=== PATIENT | female | born 2005 | race Caucasian/White ===

== ENCOUNTER 2025-04-07 17:00 | Inpatient (IN) | payer MEDICAID, SELFPAY ==
[2025-04-07] VITALS (14 sets, daily range): BP systolic 114–123; BP diastolic 71–75; PULSE 91–123; RESP 18; TEMP 36.6–37; O2SAT 92–100; BMI 33.0
--- NOTE | 2025-04-07 17:27 | XR_ITS ---
Examination: visualization of the TECHNIQUE: Limited transabdominal sonographic images pelvis Date and time: April 07, 2025 1613 hours INDICATIONS: Preop labor induction today, labor evaluation, unknown weight and presentation FINDINGS: Viable intrauterine gestation cephalic presentation spine anterior Cardiac motion 136 bpm Estimated age 37 weeks 2 days Estimated weight 3147 g IMPRESSION: Viable intrauterine gestation cephalic presentation
[2025-04-07 18:24] LABS: Basophils # (Auto) 0.0 Thou/mm3 (0.0-0.2); Basophils % (Auto) 0 % (0-2.5); Eosinophils # (Auto) 0.1 Thou/mm3 (0.0-0.5); Eosinophils % (Auto) 1 % (0-10); Hematocrit 36.5 % (36.0-46.0); Hemoglobin 13.1 g/dL (12.0-16.0); Immature Granulocytes Auto 0.03 Thou/mm3 (0.00-0.00); Lymphocytes # (Auto) 1.6 Thou/mm3 (1.0-5.0); Lymphocytes % (Auto) 18 % (10-50); Mean Corpuscular HGB Conc 35.9 g/dl (31.0-37.0); Mean Corpuscular Hemoglobin 31.3 pg (25.0-35.0); Mean Corpuscular Volume 87 fL (80-100); Monocytes # (Auto) 0.8 Thou/mm3 (0.0-0.8); Monocytes % (Auto) 9 % (0-12); Neutrophils # (Auto) 6.3 Thou/mm3 (1.8-7.7); Neutrophils % (Auto) 72 % (37-80); Nucleated Red Blood Cell # 0.00 Thou/mm3 (0.00-0.00); Nucleated Red Blood Cell % 0 /100 WBC (0); Platelet Count 176 Thou/mm3 (140-440); RDW Standard Deviation 42.8 fL (36.4-46.3); Red Blood Count 4.19 Miln/mm3 (4.00-5.20); White Blood Count 8.8 Thou/mm3 (4.5-11.0)
--- NOTE | 2025-04-07 19:48 | PD.LDHP ---
Documentation for date of: 04/07/25 OB Labor/Induct. HPI History of Present Illness Chief complaint: 19 y/o 39w 3d presents for IOL due to GDM : 1 Para: 0 Term pregnancies: 0 pregnancies: 0 Living children: 0 History of Abortions: Spontaneous and Elective: 0 History of Vaginal deliveries: 0 History of sections: No History of : No Date of last menstrual period: 07/05/24 GENIE: 04/11/25 Gestational Age (weeks): 39 Gestational Age (days): 3 Gestational age based on last menstrual period: 39 Indication for induction: medical complication (GDM- oral metformin) History of present illness: 19 y/o 39w 3d presents for IOL due to GDM on oral metformin 500mg BID. Pt was recently diagnosed at 36 weeks. Pt initially did her 1-hr GTT which was elevated and did not complete the 3-hr GTT until 36 weeks. BS was initially not well controlled so pt was placed on Metformin and after Metformin BS looked good. Pt was followed by [facility] and was placed on ASA early in the . Pt also tested positive for THC early on and reported she quit after finding out she was . [facility] sono were all normal. Cervix is closed, thick and high. Ultrasound confimred fetus is cephalic and EFW 3200g. GBS is neg. History of Present Dating criteria: LMP confirmed by 1st trimester US Adequate Care: Yes Ultrasounds: normal 1st trimester US and normal mid trimester US Obstetrical complications: gestational diabetes (Oral metformin) Labs Maternal Blood Type: O Pos Labs: Positive: Rubella Titre, Negative: RPR, Hepatitis B, HIV, Chlamydia, Gonorrhea and Group Beta Strep and Unknown: Herpes Type 1, Herpes Type 2 and Covid-19 Review of Systems Review of Systems Systems Reviewed: All systems reviewed, normal except as documented Past Medical History Surgical History SURGICAL: Negative Section Meds Home Medications and Allergies Home Medications ?Medication ?Instructions ?Recorded ?Confirmed ?Type aspirin 81 mg chewable tablet 81 mg PO QDAY 04/07/25 04/07/25 History vit no.95-ferrous 1 tab PO QDAY 04/07/25 04/07/25 History fumarate 28 mg-folic acid 800 mcg tablet () Allergies Allergy/AdvReac Type Severity Reaction Status Date / Time No Known Allergies Allergy Verified 04/07/25 17:08 OB Exam Physical Exam Vital signs: Temp Pulse Resp BP Pulse Ox O2 Del Method 98.5 F 102 H 18 114/71 100 Room Air 04/07/25 14:50 04/07/25 18:05 04/07/25 14:50 04/07/25 18:05 04/07/25 18:56 04/07/25 14:50 Constitutional Constitutional: no acute distress Routine HEENT Exam Head: Present normocephalic and atraumatic Eye: Present EOMI, PERRL and normal accommodation ENT: Present mucous membranes moist Routine Neck Exam Neck: Present full ROM Routine Respiratory Exam Respiratory: Absent respiratory distress Routine Cardiovascular Exam Cardiovascular: Present RRR Routine Abdominal Exam Abdominal: Present soft and normoactive bowel sounds Comments: Gravid Uterus EFW 3200g Routine Exam External: Present normal urethra appearance; Absent lesions Detailed Labor and Delivery Exam Dilation (cm): closed Effacement (%): 0 Cervix position: posterior station: -3 Presentation: Vertex (Per Sono) Membranes: intact Baseline heart rate: 130 monitor accelerations: 15x15 monitor decelerations: None watermelon inspector variability: Moderate (11-25) Contraction frequency (min): None Routine Extremities Exam Extremities: Present full ROM Routine Skin Exam Skin: Present intact, dry and warm Routine Neurological Exam Neurological: Present alert, oriented X3 and CN II-XII intact Routine Psychiatric Exam Psychiatric: Present normal affect and normal thought process OB Results Labs 04/07/25 17:34 Labs: Short CBC 04/07/25 Range/Units 17:34 WBC 8.8 (4.5-11.0) Thou/mm3 Hgb 13.1 (12.0-16.0) g/dL Hct 36.5 (36.0-46.0) % Plt Count 176 (140-440) Thou/mm3 OB Assessment & Plan Assessment and Plan (1) Encounter for induction of labor: Status: Acute (2) Gestational diabetes mellitus (GDM) in third trimester controlled on oral hypoglycemic drug: Status: Acute (3) with 39 completed weeks gestation: Status: Acute Additional Plan Induction method: other (Cervidil) Plan: induction, anticipate NVD and consult pralessio Additional Plan Comment: Routine Admit orders BS check Q4 hours Consult anesthesia for an epidural per pt request Ok to intermittent monitor per hospital protocol OK to have GDM-diet until more active in labor Updated Dr. Burks
[2025-04-07 19:52] LABS: Syphilis Nonreactive (Nonreactive)
[2025-04-08] VITALS (20 sets, daily range): BP systolic 105–128; BP diastolic 65–88; PULSE 72–98; RESP 16–18; TEMP 36.8–37.2; O2SAT 95–97
[2025-04-08 00:11] LABS: Amphetamine/Metham Scrn,Ur OB Negative (Negative); Benzoylecgonine Screen, Ur OB Negative (Negative); Opiate Screen,Urine OB Negative (Negative); THC Screen,Urine OB Negative (Negative)
--- NOTE | 2025-04-08 09:10 | PD.LDPN ---
Documentation for date of: 04/08/25 OB Labor Progress Note Pain Control Pain control: tolerating well Pelvic Exam Dilation (cm): 1 Effacement (%): 30 station: -3 Amniotic membrane status: Intact Contractions Monitor mode: External Contraction frequency: irreg Contraction intensity: Mild Status status: Category l Assessment and Plan Assessment: induction ongoing Plan OB labor note: other (Start cytotec) Comments: Removed the cervidil and pt is only 1 cm, still thick and high, vertex. Will start cytotec Anticipate
--- NOTE | 2025-04-08 17:37 | PC.NURSE ---
1700: Pt. educated on indication for metformin ordered my CNM Carmenza Orantes. Pt. 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 Medication administered.
--- NOTE | 2025-04-08 21:29 | PD.LDPN ---
Documentation for date of: 04/08/25 OB Labor Progress Note Pain Control Pain control: tolerating well Pelvic Exam Dilation (cm): 1 Effacement (%): Thick station: -3 Amniotic membrane status: Intact Contractions Monitor mode: External Contraction frequency: 2-6 Contraction intensity: Mild Status status: Category l Assessment and Plan Assessment: induction ongoing Plan OB labor note: continuous present management Comments: Pt has received 3 doses of cytotec with no cervical change. She will get the 4 th dose late this evening. Plant to place a cervidil after the the 4th dose. Reassuring fetus Anticipate
[2025-04-08] MEDS: fentaNYL CIT INJ 50 mCg/ML AMP 2ML 100 MCG IVP (23:45)
[2025-04-09] VITALS (126 sets, daily range): BP systolic 98–157; BP diastolic 41–89; PULSE 60–165; RESP 16–19; TEMP 36.7–37.2; O2SAT 81–100
[2025-04-09] MEDS: OXYTOCIN in NS 20 units 20 UNIT/1,000 ML BAG 125 UNIT IV (07:56)
[2025-04-09] MEDS: MINERAL OIL 30 ML UDC TOP (07:56)
--- NOTE | 2025-04-09 08:07 | OBDSUM_ITS ---
Data (Ortega) Data Hx Section: No Maternal Blood Type: O Pos Rubella Titre: Positive RPR: Non-reactive Labs: Negative: RPR, Hepatitis B, HIV, Chlamydia, Gonorrhea and Group Beta Strep and Unknown: Herpes Type 1 and Herpes Type 2 : 1 Para: 0 Term: 0 : 0 Livin Abortions: Spontaneous & Theraputic: 0 Delivery Data (Ortega) Labor Data Initiation of labor: Induction Induction/Augmentation Agent: Cytotec-Vaginal and Cervidil ROM date: 04/09/25 ROM time: 00:09 Amniotic membrane rupture type: Spontaneous Amniotic fluid description: Clear Delivery Data EDC: 04/11/25 EDC calculated by:: LMP/early US confirmation Onset of labor date: 04/09/25 Onset of labor time: 04:00 Complete dilation date: 04/09/25 Complete dilation time: 06:00 [place] delivery date: 04/09/25 [place] delivery time: 07:50 Gestational age (weeks): 39 Gestational age (days): 5 Placenta delivery date: 04/09/25 Placenta delivery time: 07:53 Stage 1 total time: Labor - Stage 1 Duration 2 hours and 0 minutes Delivered by: Elizabeth Orantes Delivery nurse: Melo Ramachandran nurse: [employer] Scale Tester at delivery: No Support person(s) at delivery: Support person, grandmother Other staff at delivery: Ashley Duarte facility attendant Method Delivery method: Normal Vaginal Delivery Presentation: Vertex position: OA Anesthesia Type Anesthesia Type: Epidural Delivery Room Medications Delivery room medications: Pitocin 20 u IV and other (TXA x1) Placenta Placenta delivery description: Spontaneous Cord blood sent to lab: Yes cord blood collection: Cord Blood Type Episiotomy Episiotomy description: None Lacerations #1: Labial: left Perineal repair Sutures used for repair: 3.0 Vicryl EBL Estimated blood loss (ml): 300 Umbilical Cord cord description: 3 Vessels Additional Procedures There was complete early this morning and she pushed for about an hour and was not pushing effectively so we let her labor down for another hour and then she was ready to push after a few pushes she had an of a viable male infant. In infant delivered with a loose nuchal cord that was easily reduced. Anterior shoulder delivered with gentle downward traction subsequent delivery the posterior shoulder and the body without complications. Infant placed on mother's abdomen. Vigorous cry upon delivery. Cord was clamped. Cut by FOB. Cord blood obtained. Three-vessel cord noted. Placenta expelled spontaneously and intact. Excellent hemostasis achieved after vigorous fundal massage and removal of clots from the posterior fornix. EBL 300. Mother sustained a very small labial laceration repaired using 3-0 Vicryl. Perineum intact. Sponge and needle count correct. Mother and baby stable, [id number] and bonding in LDR. Data (Ortega) [place] Data order: 1 's gender: Male Identification band number: [id number] weight (gms): 3320 g Weight (pounds): 7 lbs and 5.1 ozs length: 53 cm 1 minute: 8 5 minutes: 9
[2025-04-09] MEDS: TRANEXAMIC ACID 1,000 MG IVPB 1,000 MG/100 ML BAG 200 MG IV (08:17)
[2025-04-09] MEDS: BENZO/LANO/ALOE (Dermoplast) 60 GM CAN 1 SPRAY TOP (08:52)
[2025-04-09] MEDS: IBUPROFEN TAB 400 MG TABLET 800 MG PO ×2 (08:52→19:58)
[2025-04-09 14:27] LABS: Basophils # (Auto) 0.0 Thou/mm3 (0.0-0.2); Basophils % (Auto) 0 % (0-2.5); Eosinophils # (Auto) 0.0 Thou/mm3 (0.0-0.5); Eosinophils % (Auto) 0 % (0-10); Hematocrit 32.2 % (36.0-46.0); Hemoglobin 11.7 g/dL (12.0-16.0); Immature Granulocytes Auto 0.04 Thou/mm3 (0.00-0.00); Lymphocytes # (Auto) 1.4 Thou/mm3 (1.0-5.0); Lymphocytes % (Auto) 10 % (10-50); Mean Corpuscular HGB Conc 36.3 g/dl (31.0-37.0); Mean Corpuscular Hemoglobin 31.9 pg (25.0-35.0); Mean Corpuscular Volume 88 fL (80-100); Monocytes # (Auto) 1.3 Thou/mm3 (0.0-0.8); Monocytes % (Auto) 9 % (0-12); Neutrophils # (Auto) 11.2 Thou/mm3 (1.8-7.7); Neutrophils % (Auto) 80 % (37-80); Nucleated Red Blood Cell # 0.00 Thou/mm3 (0.00-0.00); Nucleated Red Blood Cell % 0 /100 WBC (0); Platelet Count 153 Thou/mm3 (140-440); RDW Standard Deviation 42.6 fL (36.4-46.3); Red Blood Count 3.67 Miln/mm3 (4.00-5.20); White Blood Count 14.0 Thou/mm3 (4.5-11.0)
[2025-04-09] MEDS: HYDROcodone/APAP 5/325 TABLET 1 TAB PO (16:42)
[2025-04-10 00:24] VITALS: BP 116/73; PULSE 79; RESP 20; TEMP 36.7; O2SAT 97
[2025-04-10] MEDS: HYDROcodone/APAP 5/325 TABLET 1 TAB PO ×2 (00:38→07:32)
[2025-04-10 04:04] VITALS: BP 116/77; PULSE 76; RESP 20; TEMP 36.7; O2SAT 97
[2025-04-10] MEDS: IBUPROFEN TAB 400 MG TABLET 800 MG PO (04:13)
[2025-04-10 08:00] VITALS: BP 112/64; PULSE 78; RESP 18; TEMP 36.7; O2SAT 97
--- NOTE | 2025-04-10 08:27 | PD.LDDS ---
DS: Providers Provider Date of admission: 04/07/25 17:00 Primary care physician: Physician No Primary/Family Admitting Provider: Elizabeth Orantes CNM Attending Provider on Admission: Elizabeth Orantes CNM Attending Provider on DC: Elizabeth Orantes CNM Discharging Provider: Elizabeth Orantes CNM Anticipated date of discharge: 04/10/25 DS: Diagnosis Discharge Diagnosis (1) Normal spontaneous vaginal delivery: Status: Acute (2) Encounter for care of lactating mother: Status: Acute (3) Gestational diabetes mellitus (GDM) in third trimester controlled on oral hypoglycemic drug: Status: Acute (4) Encounter for induction of labor: Status: Acute Problem List Completed Was Problem List Reviewed/Reconciled?: Yes Summary/Hosp Course Brief History: 19 y/o 39w 3d presents for IOL due to GDM on oral metformin 500mg BID. Pt was recently diagnosed at 36 weeks. Pt initially did her 1-hr GTT which was elevated and did not complete the 3-hr GTT until 36 weeks. BS was initially not well controlled so pt was placed on Metformin and after Metformin BS looked good. Pt was followed by [facility] and was placed on ASA early in the . Pt also tested positive for THC early on and reported she quit after finding out she was . [facility] sono were all normal. Cervix is closed, thick and high. Ultrasound confirmed fetus is cephalic and EFW 3200g. GBS is neg. 04/09/25; There was complete early this morning and she pushed for about an hour and was not pushing effectively so we let her labor down for another hour and then she was ready to push after a few pushes she had an of a viable male . In delivered with a loose nuchal cord that was easily reduced. Anterior shoulder delivered with gentle downward traction subsequent delivery the posterior shoulder and the body without complications. placed on mother's abdomen. Vigorous cry upon delivery. Cord was clamped. Cut by FOB. Cord blood obtained. Three-vessel cord noted. Placenta expelled spontaneously and intact. Excellent hemostasis achieved after vigorous fundal massage and removal of clots from the posterior fornix. EBL 300. Mother sustained a very small labial laceration repaired using 3-0 Vicryl. Perineum intact. Sponge and needle count correct. Mother and baby stable, [id number] and bonding in LDR. 04/10/25: PPD#1 patient is stable and afebrile, doing well and . Denies dizziness shortness of breath. Ambulating to the bathroom. Voiding with no problems. Passing gas. No bowel movement yet. Uterus is nontender fundus firm minimal lochia. Discharge instructions given. Patient to follow-up with Elizabeth Orantes CNM in 3 weeks Peripartum Data Delivery Method: Normal Vaginal Delivery Episiotomy Description: None Laceration Description: yes and see Delivery Summary complications: none 1: Gender: Male Disposition of : home Status at Discharge Cognitive/behavioral status at discharge: Alert and oriented x 3 Time Spent with Patient Time attestation: Total time spent providing and/or coordinating discharge services: Time spent: Greater than 30 minutes Exam Vital Signs Temp Pulse Resp BP Pulse Ox O2 Del Method 98.1 F 104 H 18 137/63 H 96 Room Air 04/09/25 03:36 04/09/25 08:09 04/08/25 14:00 04/09/25 08:09 04/09/25 07:51 04/08/25 14:00 Constitutional Constitutional: no acute distress Routine HEENT Exam Head: Present normocephalic and atraumatic Eye: Present EOMI, PERRL and normal accommodation ENT: Present mucous membranes moist Routine Neck Exam Neck: Present supple, full ROM and trachea midline Routine Respiratory Exam Respiratory: Present chest non-tender, lungs clear, normal breath sounds and no resp distress Routine Cardiovascular Exam Cardiovascular: Present RRR Routine Abdominal Exam Abdominal: Present soft and normoactive bowel sounds; Absent tenderness or distended Comments: Uterus nontender Fundus firm Routine Exam External: Present normal urethra appearance and lesions (healing) Comments: Minimal lochia Routine Extremities Exam Extremities: Present full ROM, pulses intact and normal capillary refill; Absent calf tenderness or tenderness Routine Back/Spine/Pelvis Exam Back/Spine: Present full ROM Routine Skin Exam Skin: Present intact, dry and warm Routine Neurological Exam Neurological: Present alert, oriented X3 and CN II-XII intact Routine Psychiatric Exam Psychiatric: Present normal affect and normal thought process Discharge Plan Plan Patient Disposition: HOME (Self Care) Patient condition on transfer: Stable Prescriptions/Referrals Prescriptions/Med Rec: New ibuprofen 800 mg tablet 800 mg PO Q6H MDD 4 PRN (Reason: pain) Qty: 90 0RF docusate sodium [Colace] 100 mg capsule 100 mg PO BID Qty: 60 0RF lanolin 50 % ointment 1 applic topical TID PRN (Reason: skin irritation) Qty: 15 0RF Continued PNV cmb#95-ferrous fumarate-FA [] 28 mg iron- 800 mcg tablet 1 tab PO QDAY Patient Comments: TAKE 1 TABLET BY MOUTH ONCE DAILY Discontinued amoxicillin-pot clavulanate [Augmentin] 500-125 mg tablet 1 tab PO Q12H Qty: 14 0RF ibuprofen [Children's Profen IB] 100 mg/5 mL suspension 200 mg PO QID PRN (Reason: pain) Qty: 250 0RF aspirin 81 mg tablet,chewable 81 mg PO QDAY Patient Comments: CHEW AND SWALLOW 1 TABLET BY MOUTH ONCE DAILY Referrals: No Primary/Family,Physician [Primary Care Provider] - Patient/Caregiver Discharge Instructions Meds to Beds: No Discharge Activity: activity as tolerated Other Discharge Activity Instructions:: Follow-up with Elizabeth Orantes CNM in 3 weeks Education Materials: After a Vaginal , Breastfeed Holds, After Delivery Concerns, , : Caring for Yourself Print Language: Kazakh Stand Alone Forms: Estefanía Award Info., Patient Portal Info Letter Discharge Order Discharge Orders: Discharge (Routine); Ordered 04/10/25 Ordered By: Elizabeth Orantes Planned Discharge Date 04/10/25
[2025-04-10] MEDS: DOCUSATE SOD 100 MG CAPSULE PO (09:03)
--- NOTE | 2025-04-10 10:18 | PC.NURSE ---
Cleared by Balbir from social work lecturer.
--- NOTE | 2025-04-10 12:08 | PC.SS ---
RATTLESNAKE FARMER conducted bedside contact with the patient to address nursing referral indicating patient was positive for THC during .? Toxicology screening at admission negative.? RATTLESNAKE FARMER introduced self and role.? Present with patient was Bnejamin LOYA.? Patient gave consent for FOB to be present during discussion.? RATTLESNAKE FARMER discussed basis of referral.? Patient confirmed recreational use of THC.? Patient reports use of THC to address anxiety.? Patient stated that during time of use, unaware of .? Upon confirmation of , patient ceased use.? Patient states not planning to continue use of THC.? Patient reports no mental health diagnosis.? Patient denies taking medication for anxiety.? Per patient no impairments with daily functioning.? Patient denies current intent/plan of SI/HI.? Infant, Chivo; is the patient?s first child.? was delivered naturally.? Patient plans of combo feeding .? OB services provided by Elizabeth Orantes.? Patient confirms consistency with OB appointments.? Patient is aligned with TANF and WIC.? Patient is not receiving SNAP.? Patient denies history of alcohol/drug abuse.? Patient denies CWS intervention.? Patient denies episodes of domestic violence.? Patient has access to appropriate supplies and equipment; to include a car seat.? Patient?s mother, Nancy Jacob; will provide transportation upon discharge.? Patient describes possessing support system consisting of FOB, mother and extended family.? RATTLESNAKE FARMER provided the patient with community resources to include [employer] and Warm Line.? No further intervention required at this time, rn social work will be available to address any further concerns.? RATTLESNAKE FARMER updated bedside nurse.?
== END 2025-04-10 13:09 | disposition home or self-care (01) | DRG 560 ==
LOC: S4SX 04-09 08:14 → S4NX 04-09 10:21
PROVIDERS: Admitting Provider Nurse Practitioner Women's Health; Visit Provider Nurse Practitioner Women's Health
DX: O24.425 Gestational diabetes mellitus in childbirth, controlled by oral hypoglycemic drugs (principal); Z37.0 Single live birth; Z3A.39 39 weeks gestation of pregnancy; O69.81X0 Labor and delivery complicated by cord around neck, without compression, not applicable or unspecified; Z79.84 Long term (current) use of oral hypoglycemic drugs; O70.0 First degree perineal laceration during delivery
CPT/HCPCS: 36415; 59409; 76815; 80307; 85025; 86780; 86850; 86900; 86901; 94762; J2590; J2795; J3010; J3490; A9270

== ENCOUNTER 2025-09-11 23:54 | Emergency (ER) | payer MEDICAID, SELFPAY ==
[2025-09-11 23:57] VITALS: BMI 31.1
[2025-09-12 00:12] VITALS: BP 137/71; PULSE 93; RESP 19; TEMP 36.8; O2SAT 99
--- NOTE | 2025-09-12 00:50 | EDNOTE_ITS ---
ED Headache RME/HPI General Chief Complaint: Headache Stated Complaint: HEADACHE Time Seen by Provider: 09/12/25 00:07 Arrival date/time: 09/11/25 23:54 RME / HPI RME / HPI Narrative: 20-year-old female with past medical history of headaches who delivered 5 months ago presents to the ER complaining of left-sided headache which is sharp but came on gradually and radiates to her neck bilaterally. Denies any nausea, vomiting, fever, vision changes, numbness, tingling, weakness, vertigo. Related Data Home Medications ?Medication ?Instructions ?Recorded ?Confirmed vit no.95-ferrous 1 tab PO QDAY 04/07/2503/28 fumarate 28 mg-folic acid 800 mcg tablet () Previous Rx's ?Medication ?Instructions ?Recorded docusate sodium 100 mg capsule 100 mg PO BID #60 caps 04/09/25 (Colace) ibuprofen 800 mg tablet 800 mg PO Q6H PRN pain #90 t abs 04/09/25 lanolin 50 % topical ointment 1 applic topical TID PRN skin 04/09/25 irritation #15 tubes Allergies Allergy/AdvReac Type Severity Reaction Status Date / Time No Known Allergies Allergy Verified 09/11/25 23:55 ED Exam Narrative Physical exam: Constitutional: Patient alert and oriented. Well appearing. No acute distress. Not toxic appearing. Head: Normocephalic, atraumatic. Eyes: Periorbital regions bilaterally normal to inspection. Conjunctiva clear bilaterally. Sclera anicteric bilaterally. Pupils equal, round, reactive to light bilaterally. Extraocular movements intact bilaterally. Mouth/Throat: Mucous membranes moist. No stridor or muffled voice. No trismus. Handling secretions without difficulty. Airway widely patent. Neck: Positive paracervical tenderness to palpation bilaterally. Supple. Trachea midline. No JVD. No nuchal rigidity. Normal range of motion. Respiratory: Normal effort. No accessory muscle use or respiratory distress. Lungs clear to auscultation bilaterally without rhonchi, wheezes, or crackles. Cardiovascular: RRR. Normal S1/S2. No murmurs or rubs. Radial pulses intact bi laterally. Abdomen: Soft. Non-distended. Non-tender throughout. No pulsatile mass. No guarding or rebound. Negative Strickland?s sign. Negative McBurney?s point tenderness. Negative Rovsing?s. Back: No midline tenderness or step-offs. No CVA tenderness to palpation bilaterally. Upper Extremities: No gross deformities. Lower Extremities: No gross deformities. No edema or calf tenderness. Neuro: Speech normal. No gross motor or sensory deficits to upper or lower extremities bilaterally. GCS 15. CN II?XII grossly intact. Cerebellar: Sgthos-pc-ydin testing normal. Rapid alternating movements intact. Normal gait observed. Romberg negative. Skin: Warm, dry, normal color. Psych: Normal affect. Cooperative. Normal insight. Course Quality Measures none Orders Category Date Time Status HCG Qualitative,Urine Stat Lab 09/12/25 01:09 Completed DiphenhydrAMINE [Benadryl] Med 09/12/25 00:52 Discontinued 50 mg PO X1 ONE Ketorolac Inj [Toradol Inj] Med 09/12/25 00:52 Discontinued 30 mg IM X1 ONE Prochlorperazine Inj [Compazine Inj] Med 09/12/25 00:52 Discontinued 10 mg IM X1 ONE Reevaluation(s) Reevaluation #1: At the time of reassessment prior to discharge, the patient remains alert and oriented ?3 with GCS 15. Vitals are normal, pain is controlled, and the patient is tolerating oral intake without nausea or vomiting. The patient is agreeable to discharge and verbalizes understanding of the diagnosis, studies, treatment plan, medications (including side effects/precautions), and strict ER return precautions as discussed in the ED. All concerns were addressed, and the patient is comfortable with the plan. Time: 02:22 Vital Signs Vital signs: Vital Signs Temperature 98.3 F 09/12/25 00:12 Pulse Rate 93 09/12/25 00:12 Respiratory Rate 19 09/12/25 00:12 Blood Pressure 137/71 H 09/12/25 00:12 Pulse Oximetry (%) 99 09/12/25 00:12 Oxygen Delivery Method Room Air 09/12/25 00:12 Headache MDM Narrative MDM Narrative:: MDM Patient presents with headache. Serious causes including intracranial hemorrhage, mass lesion with midline shift or herniation, ischemic stroke with focal deficits, meningitis/encephalitis, and giant cell arteritis were considered and are felt unlikely based on today?s history, exam, and overall presentation. Neurologic exam is non-focal. No meningismus is present. CT head was considered but not obtained, as the likelihood of acute findings is very low and the risks of unnecessary radiation outweigh the benefits. This was a shared decision with the patient, who expressed understanding and agreement with the plan to defer imaging. The patient is stable for discharge with outpatient follow-up recommended with their PCP in 1-2 days. Strict return precautions were reviewed, including worsening or different headache, new neurologic symptoms, or other concerning changes. The patient verbalized understanding and agreement with the plan. Patient data External records reviewed:: [facility] previous records Clinical information provided by:: patient Social determinants that could affect healthcare access:: none Patient has the following chronic illnesses:: As noted How is presenting disease/condition affected by chronic disease/condition?: uneffected by Evaluation data The following diagnostics were reviewed and interpreted by me:: other (specify) Lab and/or radiology exams considered but not ordered:: Additional Labs and radiology considered, but not ordered as they were not clinically indicated at this time. Interpretation Summary: Negative hCG Medications / Prescriptions Medications or Prescriptions considered but not ordered:: I ordered medications based on the patient?s clinical needs and assessment, as documented in the chart. For medications not prescribed, they were not indicated for the patient's current condition, and I determined they were unnecessary at this time to avoid potential risks or complications. Medication administrations:: Medication Administration History Discontinued Medications Diphenhydramine HCl (Diphenhydramine 25 Mg Capsule) 50 mg PO X1 ONE Stop: 09/12/25 00:53 Last Admin: 09/12/25 01:19 Dose: 50 mg Documented By: MALISSA Ketorolac Tromethamine (Ketorolac Inj 30 Mg/Ml Vial) 30 mg IM X1 ONE Stop: 09/12/25 00:53 Last Admin: 09/12/25 01:19 Dose: 30 mg Documented By: MALISSA Prochlorperazine Edisylate (Prochlorperazine Inj 5 Mg/Ml Vial 2 Ml) 10 mg IM X1 ONE; Protocol Stop: 09/12/25 00:53 Last Admin: 09/12/25 01:18 Dose: 10 mg Documented By: MALISSA As noted Consultations Consultation(s) initiated? (list below): No Diagnosis Differential diagnosis headache: migraine, tension headache and headache Most likely diagnosis given after review of the tests above:: Headache of unclear etiology Admission Indicated Admission indicated?: not indicated Admission Request Was there a request for admission?: No Disposition Plan Disposition Plan: Discharge Discharge Attestation Discharge Attestation: The patient and all family members were given an opportunity to ask questions and understood the discharge instructions. Discharge instructions specifically effects, indications for sooner follow up or return to the emergency department, and the expected course of current diagnosis. Patient condition: Stable Discharge Plan Plan Patient Disposition: HOME (Self Care) Patient condition on transfer: Stable Prescriptions/Referrals Prescriptions/Med Rec: No Action PNV no.95-ferrous fumarate-FA [] 28 mg iron- 800 mcg tablet 1 tab PO QDAY Patient Comments: TAKE 1 TABLET BY MOUTH ONCE DAILY ibuprofen 800 mg tablet 800 mg PO Q6H MDD 4 PRN (Reason: pain) Qty: 90 0RF docusate sodium [Colace] 100 mg capsule 100 mg PO BID Qty: 60 0RF lanolin 50 % ointment 1 applic topical TID PRN (Reason: skin irritation) Qty: 15 0RF Referrals: Arias Zelaya MD [Primary Care Provider, Family Practice] - In 1 week Problem List Clinical Impression: Headache Patient/Caregiver Discharge Instructions Education Materials: Self-Care for Headaches Additional Instructions: Follow up with your primary medical doctor within 24 hours. Return to the Emergency Room immediately for any new, worsening, continuing symptoms or any concerns at all. Return to the Emergency Room within 24 hours if you are unable to follow up with your primary medical doctor within 24 hours. Print Language: Romansh Stand Alone Forms: Estefanía Award Info., Patient Portal Info Letter DUSTIN/MOHAN Supervising Physician DUSTIN/MOHAN Supervising Physician: Dr. Mendoza
[2025-09-12] MEDS: PROCHLORPERAZINE INJ 5 MG/ML VIAL 2 ML 10 MG IM (01:18)
[2025-09-12] MEDS: KETOROLAC INJ 30 MG/ML VIAL IM (01:19)
[2025-09-12 01:43] LABS: HCG Qualitative,Urine Negative
[2025-09-12 02:29] VITALS: BP 130/84; PULSE 68; RESP 18; O2SAT 98
== END 2025-09-12 02:31 | disposition home or self-care (01) ==
PROVIDERS: Physician Assistant; Emergency Provider Emergency Medicine; PCP Family Medicine
DX: R51.9 Headache, unspecified (principal)
CPT/HCPCS: 81025; 96372; 99282; J0780; J1885; A9270